=== PATIENT | female | born 1950 ===

== ENCOUNTER 2017-10-31 01:53 | Inpatient (IN) | payer MEDICARE, BC ==
[2017-10-30 14:07] LABS: INR 0.94
[2017-10-31] VITALS (11 sets, daily range): BP systolic 118–176; BP diastolic 52–101
[~2017-10-31] VITALS: Ht 175.3 cm; Wt 93.1 kg
[~2017-10-31 01:53] MED LIST: ALB18R INH; ATOR40TA24 PO; AZEL23SP NS; BUDE10.2 INH; CALC-488 PO; CHOL400C PO; DULO60CA7 PO; ESTR-35 PO; GABA-549 PO; LEVO75TA73 PO; LOSA100T67 PO; OMEP40CA48 PO; ONDA4TAB97 PO; OXYB10TA21 PO; PRED20TA6 PO; RANI-366 PO; SUMA5SPR7 NS; TOFA11TA PO; [UNRECOGNIZED DRUG - OTHER] TP
[2017-10-31] MEDS ORDERED: fentaNYL CITR 100 MCG/2 ML AMP ONE (07:30)
[2017-10-31] MEDS ORDERED: ONDANSETRON 4 MG/2 ML VIAL ONE (07:31)
[2017-10-31] MEDS ORDERED: PROPOFOL EMUL(*) 10MG/ML 20 ML 20 ML ONE (07:31)
[2017-10-31] MEDS ORDERED: DEXAMETHASONE SOD PHOS 10MG/ML ONE (07:31)
[2017-10-31] MEDS ORDERED: LIDOCAINE MPF 1% 5 ML VIAL ONE (07:31)
[2017-10-31] MEDS: CLINDAMYCIN(*) 900 MG/NS 50 ML 50 ML IVPB ONE ×2 (09:07→09:25)
[2017-10-31] MEDS ORDERED: PREGABALIN 150 MG CAPSULE PO ONE (09:15)
[2017-10-31] MEDS ORDERED: TRANEXAMIC AC 1000 MG/10ML SDV 1,000 MG in DEXTROSE 5% 50 ML BAG 50 ML IV ONE (09:15)
[2017-10-31] MEDS ORDERED: ACETAMINOPHEN 500 MG TAB PO ONE (09:15)
[2017-10-31] MEDS ORDERED: FAMOTIDINE 20 MG TAB PO ONE (09:15)
[2017-10-31] MEDS ORDERED: LIDOCAINE/SOD BICARB 8.4% SYR ID ONE (09:15)
[2017-10-31] MEDS ORDERED: cloNIDine EPIDUR INJ 100MCG/ML 40 MCG, ROPIVACAINE 0.5% 20 ML VIAL 25 ML, EPINEPHrine H... INJ ONE (09:15)
[2017-10-31] MEDS ORDERED: MIDAZOLAM 2 MG/2 ML VIAL IVP PRN (09:15)
[2017-10-31] MEDS ORDERED: NORMOSOL R SOLN(*) 1000 ML BAG 1,000 ML IV PRN (09:15)
[2017-10-31] MEDS ORDERED: CELECOXIB 200 MG CAP PO ONE (09:15)
[2017-10-31] MEDS ORDERED: BACITRACIN 50000 UNIT/VIAL 100,000 UNIT in NS 0.9% 3000 ML IRRIGATION BAG 3,000 ML IR ONE (09:15)
[2017-10-31] MEDS ORDERED: ePHEDrine 25 MG/5 ML DISP.SYR IVP ONE (09:26)
[2017-10-31] MEDS ORDERED: NS 0.9% 20 ML SDV 20 ML ONE (10:20)
--- NOTE | 2017-10-31 11:56 | RADIOLOGY IMAGING REPORT ---
[place] [facility] [place] NAME: Mile Becker : 1950 MR: [id number] V: [id number] EXAM DATE: ORDERING PHYSICIAN: DEWEY GABRIEL TECHNOLOGIST: Location: [facility] [place] Patient: Mile Becker : 1950 Visit/Account:[id number] Date of Sevice: 10/31/2017 Technique: HIP IN OR RIGHT, PELVIS HISTORY: RIGHT TOTAL HIP ARTHROPLASTY Comparison studies: None FINDINGS: There is no acute fracture. Present is a right hip arthroplasty. There is gross anatomic alignment. Expected adjacent postoperative changes are noted. Mild degenerative changes are seen wi thin the left hip. IMPRESSION: 1. Right hip arthroplasty without evidence of hardware complication. Report Dictated By: Mono Abdalla DO at 10/31/2017 11:50 AM Report E-Signed By: Mono Abdalla DO at 10/31/2017 11:51 AM WSN:[id number]
--- NOTE | 2017-10-31 11:57 | RADIOLOGY IMAGING REPORT ---
FACILITY: [facility] - [place] PATIENT NAME: Mile Becker : 1950 MR: [id number] V: [id number] EXAM DATE: ORDERING PHYSICIAN: DEWEY GABRIEL TECHNOLOGIST: Location: [facility] Patient: Mile Becker : 1950 Visit/Account:[id number] Date of Sevice: 10/31/2017 Technique: HIP IN OR RIGHT, PELVIS HISTORY: RIGHT TOTAL HIP ARTHROPLASTY Comparison studies: None FINDINGS: There is no acute fracture. Present is a right hip arthroplasty. There is gross anatomic alignment. Expected adjacent postoperative changes are noted. Mild degenerative changes are seen wi thin the left hip. IMPRESSION: 1. Right hip arthroplasty without evidence of hardware complication. Report Dictated By: Mono Abdalla DO at 10/31/2017 11:50 AM Report E-Signed By: Mono Abdalla DO at 10/31/2017 11:51 AM WSN:[id number]
[2017-10-31] MEDS ORDERED: BISACODYL 10 MG SUPP PR PRN (12:05)
[2017-10-31] MEDS ORDERED: MAGNESIUM CITRATE 300 ML BTL PO PRN (12:05)
[2017-10-31] MEDS ORDERED: ONDANSETRON 4 MG/2 ML VIAL IVP PRN (12:05)
[2017-10-31] MEDS ORDERED: PROMETHAZINE HCL(*) 25 MG SUPP PR PRN (12:05)
[2017-10-31] MEDS ORDERED: LR 1000 ML BAG 1000 ML IV PRN (12:05)
[2017-10-31] MEDS ORDERED: ZOLPIDEM TARTRATE 5 MG TAB PO PRN (12:05)
[2017-10-31] MEDS ORDERED: MAGNESIUM HYDROXIDE* 30ML UDCP PO PRN (12:05)
[2017-10-31] MEDS ORDERED: PROMETHAZINE 25 MG/ML 1 ML AMP IVP PRN (12:05)
[2017-10-31] MEDS ORDERED: FLUSH 10 ML SYR IVP PRN (12:05)
[2017-10-31] MEDS ORDERED: diphenhydrAMINE 25 MG CAP PO PRN (12:05)
[2017-10-31] MEDS ORDERED: diphenhydrAMINE 50 MG/ML VIAL IVP PRN (12:05)
[2017-10-31] MEDS ORDERED: VASOPRESSIN 20 UNIT/ML VIAL ONE (12:45)
[2017-10-31] MEDS ORDERED: ALBUTEROL 8 GM INHALER INH PRN (14:00)
--- NOTE | 2017-10-31 14:29 | Hospitalist Consultation ---
History of Present Illness Requesting Physician Dr. Booker Reason for Consult Medical Management Chief Complaint s/p right total hip replacement History of Present Illness She was admitted s/p right total hip replacement. It is reported the surgery went well and without complication. History Problems: (1) Hyperlipidemia Status: Chronic (2) Hypertension Status: Chronic (3) Hypothyroidism Status: Chronic (4) Rheumatoid arthritis Status: Chronic (5) GERD (gastroesophageal reflux disease) Status: Chronic (6) Asthma Status: Chronic Home Meds Reported Medications Calcium Carbonate (CALCIUM CARBONATE) 500 Mg Tablet, 1500 MG PO DAILY 10/24/17 Cholecalciferol (Vitamin D3) (VITAMIN D3) 400 Unit Capsule, 400 UNIT PO DAILY, CAPSULE 10/24/17 Estradiol (ESTRACE) 1 Mg Tablet, 1 MG PO 2XW 10/24/17 [E3/E2 Cream] No Conflict Check, 1.5 MG TP BID 10/24/17 Oxybutynin Chloride (DITROPAN XL) 10 Mg Tab.er.24, 10 MG PO QDAY, TAB 10/24/17 Azelastine/Fluticasone (DYMISTA NASAL SPRAY) 23 Gm [place].pump, 137 MCG NS BID Y for CONGESTION 10/24/17 Ondansetron Hcl (ZOFRAN) 4 Mg Tablet, 4 MG PO Q12H Y for NAUSEA, TAB 10/24/17 Albuterol Sulfate (VENTOLIN HFA) 18 Gm Inh, 1-2 PUFF INH DIRECTED, INH 10/24/17 Budesonide/Formoterol Fumarate (SYMBICORT 160-4.5 MCG INHALER) 10.2 Gm Inh, 10.2 GM INH DAILY, INH 10/24/17 Omeprazole (OMEPRAZOLE) 40 Mg Capsule.dr, 40 MG PO QDAY, CAP 10/24/17 Ranitidine Hcl (ZANTAC) 150 Mg Tablet, 150 MG PO HS, TAB 10/24/17 Levothyroxine Sodium (LEVOTHYROXINE SODIUM) 75 Mcg Tablet, 75 MCG PO QDAY, TAB 10/24/17 Atorvastatin Calcium (LIPITOR) 40 Mg Tablet, 2 TAB PO HS, TAB 10/24/17 Losartan Potassium (LOSARTAN POTASSIUM) 100 Mg Tablet, 100 MG PO QDAY 10/24/17 Duloxetine HCl (Duloxetine HCl) 60 Mg Capsule.dr, 30 MG PO DAILY 10/24/17 Gabapentin (GABAPENTIN) 300 Mg Capsule, 600 MG PO TID, CAPSULE 10/24/17 Sumatriptan (SUMATRIPTAN) 5 Mg [place], 5 MG NS ONCE for PAIN, SPRAY 10/24/17 Prednisone (PREDNISONE) 20 Mg Tablet, 2.5 MG PO DAILY Y for DISCOMFORT, TAB 10/24/17 Tofacitinib Citrate (Xeljanz Xr) 11 Mg Tab.er.24h, 11 MG PO DAILY 10/24/17 Allergies: Coded Allergies: amoxicillin (Verified Allergy, Intermediate, SKIN RASH, ITCHING, 10/24/17) nickel (Verified Allergy, Intermediate, SKIN RASH, ITCHING, 10/24/17) Patient History: FH: CHF (congestive heart failure) MOTHER, FH: AR (myocardial infarction) BROTHER OR SISTER FH: Parkinson's disease BROTHER OR SISTER FH: chronic myeloid leukemia FATHER, Hx Smoking: No Exposure to Second Hand Smoke?: No Caffeine Intake: Coffee, Soda Caffeine/Cups Per Day: 2 cups of coffee 3 sodas Hx Alcohol Use: Yes Alcohol Used: Wine Hx Substance Use Disorder: No Social Drug Use: Never History of IV Drug Use: No Review of Systems All Systems Reviewed/Normal: Yes, Except as Noted Exam Vital Signs Vital Signs Date Time Temp Pulse Resp B/P (MAP) Pulse Ox O2 Delivery O2 Flow Rate FiO2 10/31/17 13:23 97.9 12 118/89 (99) 97 Nasal Cannula 3.0 10/31/17 13:10 66 General Appearance: Alert, Awake, No Acute Distress, Afebrile Neuro: No Gross deficits Cardiovascular: Regular Rate and Rhythm Respiratory: No Respiratory Distress, Clear to Auscultation Psych: Alert & Oriented X3, Appropriate Mood & Affect Assessment and Plan Problems: (1) Status post total hip replacement, right Status: Acute Assessment & Plan: Followed by Dr. Booker. She will be placed on Aspirin 325mg daily for DVT Prophylaxis. (2) Hypertension Status: Chronic Assessment & Plan: She is on chronic treatment with Losartan. This medication has been restarted with hold parameters. (3) Hyperlipidemia Status: Chronic Assessment & Plan: She is on chronic treatment with Atorvastatin. (4) Rheumatoid arthritis Status: Chronic Assessment & Plan: She is on chronic treatment with Xeljanz. She stopped this medications two weeks ago, and will not restart medication for four weeks. She does take Prednisone as needed, but has not taken this medication for six months. (5) Hypothyroidism Status: Chronic Assessment & Plan: She is on chronic treatment with Levothyroxine. (6) GERD (gastroesophageal reflux disease) Status: Chronic Assessment & Plan: She is on chronic treatment with Ranitidine and Omeprazole. She will receive Protonix instead of Omeprazole during admission. (7) Asthma Status: Chronic Assessment & Plan: She is on chronic treatment with Ventolin inhaler as needed and Symbicort. She does use oxygen at night. Venous Thromboembolism Antithrombotics Is Pt On Any Antithrombotics?: No Exam Sepsis Risk: No Definite Risk ALPHONSO TORRESP Oct 31, 2017 14:28
[2017-10-31] MEDS: GABAPENTIN 300 MG CAP PO SCH ×2 (15:37→20:31)
[2017-10-31] MEDS: CLINDAMYCIN 150 MG CAP PO SCH (16:30)
[2017-10-31] MEDS: HYDROmorphone HCL 2 MG/ML SDV IVP PRN ×3 (16:30→22:36)
[2017-10-31] MEDS ORDERED: ASPIRIN 325 MG TAB PO SCH (21:00)
[2017-10-31] MEDS ORDERED: RANITIDINE HCL 150 MG TAB PO SCH (21:00)
[2017-10-31] MEDS ORDERED: ATORVASTATIN 40 MG TAB PO SCH (21:00)
--- NOTE | 2017-10-31 21:33 | OPERATIVE REPORT 1 ---
EVENT DATE: October 31, 2017 SURGEON: Cleveland Booker MD ANESTHESIOLOGIST: River Rosales MD ANESTHESIA: General plus spinal. AUTOMATIC DRILLER AND REAMER: LILLIE Larson PREOPERATIVE DIAGNOSIS Right hip osteoarthritis. POSTOPERATIVE DIAGNOSIS Right hip osteoarthritis. PROCEDURE PERFORMED Right total hip arthroplasty. FINDINGS The patient had a significant patch of arthritis right on the superior aspect of her femoral head which is likely causing her difficulty, but was amenable for total hip arthroplasty. ESTIMATED BLOOD LOSS About 200 mL. DRAINS None. COMPLICATIONS None. TOURNIQUET TIME Not applicable. IMPLANTS USED A [employer] combo construct with a 6 standard offset stem and a 36, -3.5 Biolox Delta ceramic head made by [employer], and then a G7 shell. There was 50 mm with a G7 neutral D liner made by [employer]. The reason for the hybrid construct is secondarily due to the patient's METAL ALLERGIES. SPECIMENS None. INDICATIONS AND HISTORY This patient is a 67-year-old female who presented to my clinic for evaluation of right hip pain and irritation going on for some time. She continue to have pain and irritation despite conservative management and continued to have issues associated with it. She failed conservative management and so wanted to go ahead with a total hip arthroplasty today, October 31, 2017. The risks and benefits were discussed with the patient, and informed consent was obtained. At the last clinic visit, we talked about the implications of dislocation and ongoing discrepancy and other complications associated with surgery in general and the hip replacement wearing out over time. After discussion of those risks and benefits, informed consent was obtained at the last clinic visit. DESCRIPTION OF PROCEDURE As the patient was brought in the operating room, she and the procedure were both verified. She was placed supine on the operating table and induced and intubated by Anesthesia. The right lower extremity was put in the lateral decubitus position with the right hip towards the ceiling, and then the right hip was prepped and draped in the usual fashion. The standard incision was made in the posterolateral approach, taken through the skin and subcutaneous tissue until I got down to the gluteal musculature and then the IT band. Once I was able to identify the IT band and the gluteal musculature, I went through this area and was able to gain access to the posterior aspect of the hip. I then was able to take down the short external rotators and tied the piriformis for lateral repair. I then made a T incision within the capsule, and I was able to dislocate the head without any difficulty. Utilizing the standard jig, I was able to cut the femoral neck without any difficulty and remove the femoral head, which showed one large stripe of cartilage damage just to the superior aspect of the femoral head. I then turned attention to the acetabulum where I was able to debride the labrum , remove the labrum around the acetabulum, and then tag the capsule for later repair. I then subsequently prepared the acetabulum for reaming and then reamed from a [address] to a 49 mm reamer in subsequent concentric reaming, and this had a good concentric hopi associated with it with no signs of problems of the posterior wall, and so therefore I put in a 60 [employer] shell without any difficulty, and it was in place without any issues. I was able to verify that it was down through the central hole and then put in a neutral D liner for a 36 head without any issues. We liked the version, and everything looked good. It seemed fairly stable, and so therefore, we then turned attention back to the femur. Once at the femur, in an internally rotated and flexed position, I was then able to take the box cutting osteotome and cut into the first part of the femur. I was then able to take the canal finder and then followed by lateralizing reamer and make it amenable for broaching. I then broached from a [address] up to a 6 standard offset stem without any major difficulties. It had excellent fit, and so therefore, this was the final construct chosen. I then took x-rays with the standard offset 6 trial with a standard head. This was found to be a little long on the x-rays, and so therefore, we then switched up to a -3.5 head and put in the stem just a good millimeter or two further. I then put in the final construct with putting the stem just about a millimeter or two further and then taking the -3.5 head. This had better extension associated with it, and it did not seem as long, and still had excellent stability associated with it, and so, this was the final construct chosen. I then was able to repair the capsule with heavy Ethibond sutures. This was then followed by tying Ethibond from the piriformis back to the posterior aspect of the femur through drill holes. I then irrigated with copious amounts of saline which I had throughout the case with the pulsatile lavage. I then closed the gluteal musculature with the IT band with #2 Stratafix. This was then followed by 2-0 Vicryl in the deep fat, followed by a subcutaneous 2-0 Stratafix, and then a 4-0 Monocryl in the skin. The joint was anesthetized with a joint cocktail during the procedure also and then dressed with Steri- Strips, gauze 4 x 4's, a soft dressing, and a hip wrap. The patient was awakened, extubated, and transferred to PACU in stable condition where she will be admitted. OSMAR
[2017-11-01] MEDS: CLINDAMYCIN 150 MG CAP PO SCH ×2 (01:48→08:23)
[2017-11-01 01:49] VITALS: BP 115/62
[2017-11-01 03:00] VITALS: BP 124/53
[2017-11-01] MEDS ORDERED: LEVOTHYROXINE SOD 0.075 MG TAB PO SCH (06:00)
[2017-11-01] MEDS: HYDROmorphone HCL 2 MG/ML SDV IVP PRN (06:10)
[2017-11-01 07:13] VITALS: BP 111/57
[2017-11-01] MEDS ORDERED: ASPI-757 PO (07:49)
--- NOTE | 2017-11-01 07:50 | Hospitalist Progress Note ---
Subjective Progress Notes Subjective She has no concerns this morning. She had no acute events overnight. She states she would like to go home today. Patient Complains of: Cardiovascular: No: Chest Pain Respiratory: No: Shortness of Breath Physical Exam Vital Signs Date Time Temp Pulse Resp B/P (MAP) Pulse Ox O2 Delivery O2 Flow Rate FiO2 11/01/17 07:44 86 11/01/17 07:13 98.4 65 12 111/57 (75) Nasal Cannula 2.0 General Appearance: Alert, Awake, No Acute Distress, Afebrile Neuro: No Gross deficits Cardiovascular: Regular Rate and Rhythm Respiratory: No Respiratory Distress, Clear to Auscultation Psych: Alert & Oriented X3, Appropriate Mood & Affect Result Diagram: 11/01/17 0528 Assessment and Plan Problems: (1) Status post total hip replacement, right Status: Acute Assessment & Plan: Followed by Dr. Booker. She will be placed on Aspirin 325mg daily for DVT Prophylaxis. (2) Hypertension Status: Chronic Assessment & Plan: She is on chronic treatment with Losartan. This medication has been restarted with hold parameters. (3) Hyperlipidemia Status: Chronic Assessment & Plan: She is on chronic treatment with Atorvastatin. (4) Rheumatoid arthritis Status: Chronic Assessment & Plan: She is on chronic treatment with Xeljanz. She stopped this medications two weeks ago, and will not restart medication for four weeks. She does take Prednisone as needed, but has not taken this medication for six months. (5) Hypothyroidism Status: Chronic Assessment & Plan: She is on chronic treatment with Levothyroxine. (6) GERD (gastroesophageal reflux disease) Status: Chronic Assessment & Plan: She is on chronic treatment with Ranitidine and Omeprazole. She will receive Protonix instead of Omeprazole during admission. (7) Asthma Status: Chronic Assessment & Plan: She is on chronic treatment with Ventolin inhaler as needed and Symbicort. She does use oxygen at night. Exam Sepsis Risk: No Definite Risk ALPHONSO TORRES DRAWING TRACER Nov 01, 2017 07:50
[2017-11-01] MEDS ORDERED: OXYC-865 PO (08:11)
[2017-11-01] MEDS: GABAPENTIN 300 MG CAP PO SCH (08:23)
[2017-11-01 08:36] VITALS: Ht 175.3 cm; Wt 93.1 kg
[2017-11-01] MEDS ORDERED: BUDESO/FORMOT 160/4.5 MCG 6 GM INH SCH (09:00)
[2017-11-01] MEDS ORDERED: LOSARTAN POTASSIUM 50 MG TAB PO SCH (09:00)
[2017-11-01] MEDS ORDERED: PANTOPRAZOLE SOD 40 MG TABEC PO SCH (09:00)
[2017-11-01] MEDS ORDERED: DULoxetine HCL 30 MG CAPCR PO SCH (09:00)
== END 2017-11-01 11:10 | disposition home or self-care (01) | DRG 470 ==
LOC: OR 01:53 → MED 13:10
PROVIDERS: ADMIT Orthopaedic Surgery; ATTEND Orthopaedic Surgery
PROC: 0SR904Z Replacement of Right Hip Joint with Ceramic on Polyethylene Synthetic Substitute, Open Approach (ICD-10-PCS; principal; 2017-10-31 09:15)
DX: M16.11 Unilateral primary osteoarthritis, right hip (principal); E78.5 Hyperlipidemia, unspecified; I10 Essential (primary) hypertension; E03.9 Hypothyroidism, unspecified; M06.9 Rheumatoid arthritis, unspecified; K21.9 Gastro-esophageal reflux disease without esophagitis; J45.909 Unspecified asthma, uncomplicated; Z88.0 Allergy status to penicillin; Z99.81 Dependence on supplemental oxygen
CPT/HCPCS: 36415; 72170; 85014; 85018; 85610; 86850; 86900; 86901; 97161; 97165; J0171; J0735; J1100; J1170; J1885; J2001; J2250; J2405; J2704; J2795; J3010; J3490; J3535; J7050; J7060; J7120